=== PATIENT | male | born 1955 | race Caucasian/White ===

== ENCOUNTER 2021-05-01 12:58 | Outpatient (CLI) | payer MEDICARE, SELFPAY ==
[2021-05-01 13:02] VITALS: BP 135/80; PULSE 58; RESP 16; TEMP 36.4; O2SAT 99; BMI 26.4
[2021-05-01] MEDS: 0.9% Saline Lock 10 ML Syringe IV (13:06)
[2021-05-01 13:36] VITALS: BP 116/72; PULSE 55; RESP 16; TEMP 36.8; O2SAT 98
[2021-05-01 14:26] VITALS: BP 113/70; PULSE 58; RESP 16; TEMP 36.4; O2SAT 99
== END 2021-05-01 23:59 | disposition home or self-care (01) ==
LOC: MS3OUT 12:59 → MS3 12:59
PROVIDERS: Referring Provider Nurse Practitioner Acute Care; Visit Provider Nurse Practitioner Acute Care
DX: U07.1 COVID-19 (principal)
CPT/HCPCS: J7050; M0243; A4216; Q0244